=== PATIENT | female | born 1965 | race Caucasian/White ===

== ENCOUNTER 2018-05-11 14:17 | Emergency (ER) | payer SELFPAY ==
[2018-05-11 14:18] VITALS: BP 166/88; PULSE 72; RESP 16; TEMP 36.3; O2SAT 99; BMI 36.5
[2018-05-11] MEDS: proCHLORPERazine 10 MG/2 ML Vial IV (15:39)
[2018-05-11] MEDS: DiphenhydrAMINE 25 MG Capsule PO (15:39)
[2018-05-11 16:35] VITALS: BP 129/77; PULSE 71; RESP 14; O2SAT 93
--- NOTE | 2018-05-11 17:00 | ED.VISSUMM ---
- ER Visit Summary Date of Service: 05/11/18 Chief Complaint: Headache History of Present Illness: The patient is a 53 F with pain behind her left eye. This started around 12:30 PM while she was in a meeting. It feels like a hot poker. She has a history of headaches and tried some Maxalt with no relief. No other specific symptoms like fever, visual changes, nausea, vomiting, weakness, or numbness. Patient reports she does not feel right. 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 She has been getting MRIs, but the last one was about 12 months ago. Physical Examination: Afebrile and vital signs unremarkable except for a blood pressure of 166/88. Patient appears uncomfortable but not in acute distress. HEENT exam is unremarkable. It was noted that her right left pupil is not reactive. This is not new for her. Neck nontender with no meningeal signs. Heart regular. Lungs clear. Abdomen soft. Extremities nontender with no edema. Good range of motion and strength. Normal sensation and cerebellar testing. Test Results: CT head unremarkable. Postoperative changes but nothing acute. Emergency Department Course and Treatment: Patient treated with Compazine and Benadryl while awaiting results. I reevaluated the patient when I discussed her CT results. Her pain had went from an 8 out of 10 to a 2 out of 10. Patient declined any further medication. Would like to go home. I advised that she should still follow-up with her outpatient surveillance and will likely need a repeat MRI. This can be performed as an outpatient. Nothing to suggest stroke, bleed, CAT TENDER infection, or any other severe or emergent pathology. Patient will return for new or worsening symptoms. Treatment Plan: As above Disposition: Discharged Impression: 1. Acute cephalgia This note was generated with Tastebuds dictation software. It may contain incorrect words, spelling, and punctuation that were not noted in review of the chart prior to signing ED Disposition - Plan for ED Patient: Chief Complaint: Headache Referrals: Care Physician,No Primary [Primary Care Provider] -
--- NOTE | 2018-05-11 17:03 | ED.DCSUM_ITS ---
- ER Visit Summary Date of Service: 05/11/18 Chief Complaint: Headache History of Present Illness: The patient is a 53 F with pain behind her left eye. This started around 12:30 PM while she was in a meeting. It feels like a hot poker. She has a history of headaches and tried some Maxalt with no relief. No other specific symptoms like fever, visual changes, nausea, vomiting , weakness, or numbness. Patient reports she does not feel right. 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 She has been getting MRIs, but the last one was about 12 months ago. Physical Examination: Afebrile and vital signs unremarkable except for a blood pressure of 166/88. Patient appears uncomfortable but not in acute distress. HEENT exam is unremarkable. It was noted that her right left pupil is not reactive. This is not new for her. Neck nontender with no meningeal signs. Heart regular. Lungs clear. Abdomen soft. Extremities nontender with no edema. Good range of motion and strength. Normal sensation and cerebellar testing. Test Results: CT head unremarkable. Postoperative changes but nothing acute. Emergency Department Course and Treatment: Patient treated with Compazine and Benadryl while awaiting results. I reevaluated the patient when I discussed her CT results. Her pain had went from an 8 out of 10 to a 2 out of 10. Patient declined any further medication. Would like to go home. I advised that she should still follow-up with her outpatient surveillance and will likely need a repeat MRI. This can be performed as an outpatient. Nothing to suggest stroke, bleed, CORRECTIVE THERAPY AIDE TEACHER infection, or any other severe or emergent pathology. Patient will return for new or worsening symptoms. Treatment Plan: As above Disposition: Discharged Impression: 1. Acute cephalgia This note was generated with [employer] dictation software. It may contain incorrect words, spelling, and punctuation that were not noted in review of the chart prior to signing ED Disposition - Plan for ED Patient: Chief Complaint: Headache Referrals: Care Physician,No Primary [Primary Care Provider] -
--- NOTE | 2018-05-11 17:03 | ED.DEP ---
ED Disposition - Plan for ED Patient: Chief Complaint: Headache Instructions: ED Cephalgia Unspecified Referrals: Won Hernandez DO [STAFF PHYSICIAN] -
[2018-05-11 17:23] VITALS: BP 114/72; PULSE 81; RESP 16; O2SAT 98
== END 2018-05-11 17:25 | disposition home or self-care (01) ==
PROVIDERS: Emergency Provider Emergency Medicine
DX: R51 Headache (principal); K21.9 Gastro-esophageal reflux disease without esophagitis; E03.9 Hypothyroidism, unspecified; Z79.899 Other long term (current) drug therapy
CPT/HCPCS: 70450; 96374; 96375; 99282; A4216

== ENCOUNTER → 2018-11-08 12:33 | Outpatient (CLI) | payer OTHER, SELFPAY ==
--- NOTE | 2018-11-08 12:43 | BI_ITS ---
MAMMOGRAPHY - BILATERAL SCREENING REASON FOR EXAM: Female, 53 years old. Routine annual screening examination. PERTINENT HISTORY: Non-contributory. TECHNIQUE: Digital bilateral breast alissa (3D mammographic acquisition) in the CC and MLO projections. 2-D mediolateral oblique (MLO) and craniocaudad (CC) views of both breasts were obtained. CAD: Full Field Digital Mammography with Computer Added Detection was performed. COMPARISON: Comparison is made with prior outside examination dated November 08, 2013 FINDINGS: Breast Composition: The breasts are heterogeneously dense, which may obscure small masses. There are no dominant masses or suspicious calcifications. Stable small bilateral axillary lymph nodes. No other significant abnormalities are identified. There has been no significant change since the prior study. BI/SCREENING MAMM (CAD), BILAT IMPRESSION: Stable bilateral screening mammogram. Yearly follow-up mammogram recommended. (A) ASSESSMENT CATEGORY: BIRADS Category 2: Benign. A letter regarding these results will be sent to the patient by the facility within 30 days. Approximately 10% of breast cancers are not detected by mammography. A normal mammogram should not delay biopsy of a clinically suspicious abnormality. [id number] Electronically Signed: Richard Alfredo, at 14:38 EST , Service support ,
== END ==
DX: Z12.31 Encounter for screening mammogram for malignant neoplasm of breast (principal)
CPT/HCPCS: 77063; 77067

== ENCOUNTER → 2018-12-20 | Outpatient (CLI) | payer OTHER, SELFPAY ==
--- NOTE | 2018-12-20 06:43 | CT_ITS ---
HISTORY: RUQ TENDERSON EXAMINATION: CT Abdomen And Pelvis W/ Contrast TECHNIQUE: Helically acquired images were obtained of the abdomen and pelvis following IV contrast. A radiation dose optimization technique was used for this scan. IV Contrast dosage and agent: 100CC Isovue 300 Oral contrast: None. COMPARISON: None FINDINGS: LOWER CHEST: Lung bases are clear. No cardiomegaly or pericardial effusion observed. LIVER: Homogeneous. No focal mass. GALLBLADDER AND BILIARY TREE: No radiopaque gallstones. Possible gallbladder wall thickening. Gallbladder mildly distended. No intra- or extrahepatic biliary ductal dilation. KIDNEYS AND URETERS: 4 mm nonobstructing stone lower pole calyx right kidney. No left-sided stones. No hydronephrosis or ureteral stones. Incidental small renal cysts. ADRENAL GLANDS: Non-enlarged. SPLEEN: Normal size without focal cystic or solid mass. PANCREAS: No focal cystic or solid mass. BOWEL: Appendix not identified. No evidence of appendicitis. Mildly prominent stool in the cecum. No obstruction or inflammation of the bowel. LYMPH NODES: No enlarged mesenteric or retroperitoneal lymph nodes. PERITONEUM: No ascites or free air. No other fluid collection. VESSELS: Aorta is non-dilated. URINARY BLADDER: Unremarkable. REPRODUCTIVE ORGANS: Uterus and ovaries unremarkable. ABDOMINAL WALL: No discrete abdominal or pelvic wall hernia observed. BONES: No lytic or blastic abnormality observed. CT/Abdomen/Pelvis WITH Contrast IMPRESSION: Question mild gallbladder wall thickening. Given the history of right upper quadrant pain consider ultrasound to assess for occult gallstones. Mildly prominent stool within the cecum. This might cause right-sided discomfort. Small nonobstructing stone lower pole right kidney. Individualized dose optimization techniques were used for this CT. at 0301 Reported and signed by: Fortunato Verdin MD Electronically Signed: Fortunato Verdin, at 3:00 EDT Tel , Service support ,
== END | disposition home or self-care (01) ==
PROVIDERS: Referring Provider Nurse Practitioner Family; Visit Provider Nurse Practitioner Family
DX: R10.811 Right upper quadrant abdominal tenderness (principal)
CPT/HCPCS: 74177; Q9967

== ENCOUNTER → 2018-12-27 | Outpatient (CLI) | payer OTHER, SELFPAY ==
--- NOTE | 2018-12-27 09:28 | NM_ITS ---
CLINICAL: 53-year-old female with reported history of abdominal pain. RADIONUCLIDE HEPATOBILIARY SCINTIGRAPHY COMPARISON: CT of the abdomen-pelvis report 12/20/2018 FINDINGS: Following the intravenous administration of 5.5 mCi of 99m Tc Mebrofenin, hepatobiliary images reveal: 1. Relatively prompt and homogeneous radiopharmaceutical concentration is noted by a normal sized liver. No parenchymal defects are identified. 2. Gallbladder activity is identified at 15 minutes post radiopharmaceutical administration. 3. Small intestinal tract is not visualized during 60 minutes of pre-CCK sequential image acquisition. Small bowel is defined following cholecystokinin infusion. 4. Washout of the radiopharmaceutical by the hepatic parenchyma appears qualitatively normal. Cholecystokinin (0.02 ug/kg) was administered intravenously over a 30-minute period. The post CCK gallbladder ejection fraction calculated at 20 minutes following Cholecystokinin administration was noted to be 47.0 % (normal greater than 35%). During 30 minutes of post CCK imaging, there is no scintigraphic evidence of reflux of the radiotracer into the common hepatic duct or refilling of the gallbladder. NM/Hepatobilliary Img w/Pharm Int IMPRESSION: 1. NORMAL 99m Tc Mebrofenin hepatobiliary imaging examination with Cholecystokinin. A. A gallbladder ejection fraction calculated to be greater than 35% following the administration of Cholecystokinin makes the probability of functional hepatobiliary disease (gallbladder and/or sphincter of Oddi dyskinesia) and/or organic hepatobiliary disease (chronic acalculous cholecystitis and/or cystic duct syndrome) to be low. (Derrick Carlton et al, Journal of Nuclear Medicine 32:1695, 1990). Electronically Signed: Ean Jones DO at 23:21 EDT Tel , Service support ,
== END | disposition home or self-care (01) ==
LOC: NM 09:25
DX: R10.811 Right upper quadrant abdominal tenderness (principal)
CPT/HCPCS: 78227; A9537; J2805

== ENCOUNTER 2019-02-14 07:37 | Day surgery (SDC) | payer OTHER, SELFPAY ==
[2019-01-20 09:17] VITALS: BMI 36.5
--- NOTE | 2019-01-20 09:56 | HP_ITS ---
Intake Vital Signs 01/20/19 Body Mass Index (BMI) 36.5 01/20/19 Height 5 ft 4 in 01/20/19 Weight: 227 lb 01/20/19 Body Mass Index (BMI) 38.9 01/20/19 Blood Pressure 123/78 H 01/20/19 Blood Pressure Location Rt brachial 01/20/19 Blood Pressure Position Sitting 01/20/19 Respiratory Rate 18 01/20/19 Pulse Rate 69 Intake Visit Reasons: RUQ Pain Ct [facility] 12/20 Public Relations Sales Marketing Required: No Is patient in pain?: No Allergies latex Allergy (Verified 01/20/19 09:15) Angioedema Medications Rizatriptan Benzoate [Maxalt] 10 mg PO DAILY PRN PRN 05/11/18 [History Confirmed 01/20/19] atenolol 25 mg tablet 12.5 mg PO DAILY tab 01/20/19 [History Confirmed 01/20/19] levothyroxine 112 mcg tablet 56 mcg PO DAILY tab 01/20/19 [History Confirmed 01/20/19] meclizine 25 mg tablet 25 mg PO DAILY PRN 01/20/19 [History Confirmed 01/20/19] melatonin 5 mg capsule mg PO cap 01/20/19 [History Confirmed 01/20/19] naproxen sodium 220 mg capsule 220 mg PO BID PRN 01/20/19 [History Confirmed 01/20/19] omeprazole 40 mg capsule,delayed release 40 mg PO DAILY 01/20/19 [History Confirmed 01/20/19] pantoprazole 40 mg tablet,delayed release 40 mg PO DAILY #30 tab 01/20/19 [Rx Confirmed 01/20/19] PFSH Medical History Migraines (Acute) Palpitations (Acute) vertigo (Acute) HTN (hypertension) (Chronic) Surgical History S/P appendectomy (Acute) S/P craniotomy (Acute) S/P ovarian cystectomy (Acute) S/P tonsillectomy (Acute) S/P tubal ligation (Acute) Family History Mother CAD (coronary artery disease) Diabetes Heart disease Hypertension Kidney disease Father CVA (cerebral vascular accident) Grandmother Cancer Social History Smoking Status: Never smoker alcohol intake: current alcohol intake frequency: holidays/special occasions only HPI HPI HPI: JERONIMO COTA, is a 53 F who presents to the office today for HPI HPI Surgical H&P: Yes HPI: JERONIMO COTA, is a 53 F who presents to the office today for right shoulder/mid back pain and constant right back pain along with some discomfort in the right upper quadrant. Patient states that her right shoulder right back pain to me 8/10 and she gets it occasionally about 3 times the last month. However patient states that she gets this before she even eats or several hours after her last meal. Patient states that she has had some fatty greasy food that has not made a difference in. Patient is unsure if this discomfort starts in the right upper quadrant or not she states she occasionally has an achiness there but nothing prominent. Patient also complains of a constant right back pain that 4-5 out of 10 states she has had it for about a year states there is no change with food even fatty or greasy foods. Patient CT abdomen pelvis which the official read question whether some mild thickening of the gallbladder wall, HIDA scan was done which showed a normal ejection fraction of 47%. She states she has had reflux for about 40 years and in the 10th grade she started taking some medications but is been worse the last 2 years. Patient describes symptoms as burning upper esophagus, burping up acid. Currently she takes Prevacid or Prilosec [id number] 2 tabs once a day but states she still has daily symptoms. She does try to avoid sauce or spicy foods and gravy. Patient has not changed the head of her mattress. Patient has never had an EGD or colonoscopy. Denies any family history of colon cancer. She states she has bowel movements daily denies any blood. ROS General General: Yes weight change (gain) and fatigue; no colon cancer or breast cancer HEENT HEENT: No difficulty swallowing or swollen glands Skin Skin: No rash or changing moles Musc Musculoskeletal: Yes back problems (right back pain) and arthritis Cardio Cardiovascular: No chest pain Psych Psychiatric: No depression or anxiety Resp Respiratory: No shortness of breath, Yes sleep apnea, No cough Gastro Gastrointestinal: No abdominal pain, Yes nausea or vomiting (occ N), Yes diarrhea (occasional), Yes constipation, No blood in stool, Yes acid reflux, Yes hemorrhoids, No ulcers, Yes gallbladder problem, No black,tarry stools Exam Const General: cooperative, comfortable, no acute distress HENME Head: normal to inspection, atraumatic Eyes Sclera: sclerae normal Neck Neck: supple Resp Effort & Inspection: normal respiratory effort Cardio Rate: regular rate GI Inspection: non-distended, obesity, scar (Lower midline incision) Palpation: soft, no guarding, no hernias, nontender Assessment & Plan Problems 1. Right-sided back pain M54.9 2. RUQ pain R10.11 3. Gastroesophageal reflux disease K21.9 4. Encounter for screening for malignant neoplasm of colon Z12.11 Plan Patient mainly complains of occasional right shoulder and mid back pain but she also states she has a constant right back pain and some occasional discomfort in the right upper quadrant patient is unable to tell me if it really starts in the right upper quadrant are not and also this does not seem to make a difference with food. Patient's CAT scan appeared to have an normal-appearing gallbladder official read said there could be possible mild thickening, HIDA scan was within normal limits at 47%. Ensure that patient's symptoms are due to gallbladder but will check an ultrasound of the gallbladder as this has not been done yet. Discussed with patient that she does need an EGD as she states she has had reflux for about 4 years last 2 years gotten worse she is on 40 mg of either Prevacid or Prilosec whichever is on sale at the time and states she still has symptoms daily with the medication. Did encourage patient to continue to avoid spicy foods, recommended small meals, recommended not eating before bed and also trying to elevate the head of her mattress. I have discussed the above with the patient. I have offered the patient EGD and colonoscopy for evaluation. I have explained the risks/benefits of the procedure and described the procedure. I have discussed the risks with the patient, including but not limited to: infection, bleeding, perforation of the GI tract requiring emergency surgery, inability to complete the procedure, injury to any internal organs, complications of anesthesia, etc. - the patient understands and agrees to proceed. I have answered all the patient's questions to the patient's satisfaction and the patient has no further questions. The patient has been given instructions for the colon cleansing preparation. 1 day of clears, MiraLAX Dulcolax split prep Soraida Toscano M.D. Pager: [phone] [facility] [address] [place] [address], [facility], [address] [place] [id number] Office: [phone] Orders Orders: Colonoscopy Today EGD Today R10.11 Gallbladder Today K21.9, R10.11 Medications New: pantoprazole 40 mg PO DAILY 30 tabs 2RF Plan Detail Follow Up We will schedule EGD and colonoscopy and get ultrasound of her gallbladder Coding Level of Care Code Off vis,new,level 4 Diagnoses Right-sided back pain M54.9 RUQ pain R10.11 Gastroesophageal reflux disease K21.9 Encounter for screening for malignant neoplasm of colon Z12.11 01/20/19 0957 <Electronically signed by Soraida Toscano MD> Date Soraida Toscano MD I have examined the patient the following changes are noted: Patient has been taking the Protonix 40 mg p.o. daily. She states she has some kind of epigastric not really pain but fullness feeling after eating. Patient denies the right upper quadrant pain or the right back pain today. Patient states that the prep went well.
[2019-02-14 08:01] VITALS: BP 126/68; PULSE 74; RESP 14; TEMP 36.5; O2SAT 98; BMI 38.9
--- NOTE | 2019-02-14 08:50 | EGD_PTH ---
PATIENT: JERONIMO COTA LOC: EN U#:[id number] AGE/SX: 54/F ROOM: RE02/14/[address]: Dr. Soraida Toscano MD : 1965 BED: DIS: 02/14/2019 SPEC #: [id number] RECD: 02/14/19 11:53 STATUS: CARY PERCY #: [id number] ALEXANDRA: 02/14/19 08:[address]: Soraida Toscano DEPT: SURGICAL PATHOLOGY RECD BY: Jose C Rojas ENTERED: 02/14/19 12:27 SP TYPE: EGD BIOPSY OTHR DR: Vivian [facility] Tissues: A - Gastric mucous membrane B - Gastric mucous membrane Procedures: Special Stain Group II Surgery Specimen Level IV Alcian Blue/PAS (control) HEADER OPERATION: Colonoscopy, EGD ([facility]) PRE-OP DIAGNOSIS: RUQ pain, tight sided back pain, GERD, screening TISSUE SUBMITTED: A. Antrum biopsy for H. Pylori and path, B. GE junction biopsy MICROSCOPIC DIAGNOSIS A. Gastric antrum, biopsy: Mild chronic gastritis. See comment. B. Gastroesophageal junction, biopsy: Fragment of gastric mucosa with mild chronic inflammation. No evidence of intestinal metaplasia. See comment. AM:amalia 02/15/19 COMMENT A. The results of immunohistochemistry for Helicobacter pylori will be reported separately ([id number]). B. Alcian blue/PAS stain with matched control supports the above diagnosis. Squamous epithelium is not represented in the biopsy. Clinical correlation is suggested. MICROSCOPIC DESCRIPTION Slides are reviewed. GROSS DESCRIPTION A - Received in fixative is one container labeled with the patient's name and designated antrum biopsy. The specimen consists of one irregular fragment of light owens soft tissue that measures 0.3 x 0.2 x 0.1 cm. The specimen is totally submitted in one cassette. B - Received in fixative is one container labeled with the patient's name and designated GE junction. The specimen consists of one irregular fragment of light owens soft tissue that measures 0.2 x 0.2 x 0.1 cm. The specimen is totally submitted in one cassette. / AM:amalia 02/14/19 TC:5 CPT: 26620 x2, 63213
--- NOTE | 2019-02-14 08:50 | IMM_PTH ---
PATIENT: JERONIMO COTA LOC: EN U#:[id number] AGE/SX: 54/F ROOM: RE02/14/[address]: Dr. Soraida Toscano MD : 1965 BED: DIS: 02/14/2019 SPEC #: [id number] RECD: 02/14/19 13:56 STATUS: CARY PERCY #: [id number] ALEXANDRA: 02/14/19 08:[address]: Soraida Toscano DEPT: IMMUNOHISTOCHEMISTRY RECD BY: Luci Rinaldi ENTERED: 02/14/19 13:57 SP TYPE: IMMUNO OTHR DR: [facility] Tissues: A - Stomach, NOS Procedures: H Pylori (initial) PHYSICIAN & INSTITUTION [place] [address] SPECIMEN INFORMATION: Tissue Source: A - Antrum biopsy Clinical Info: RUQ pain, right-sided back pain, GERD, screening Specimen Number: [id number] CPT code: 80076 METHODOLOGY: Deparaffinized sections of prefer/formalin-fixed tissue or PAP/DQ stained slides are incubated with monoclonal/polyclonal antibodies/oligonucleotide probes. Localization is made via biotin free immunoperoxidase method. Appropriate controls are performed and reacted as expected. Results on target cell population are indicated in the following table: RESULTS: ANTIBODY / CLONE RESULT Block A H Pylori (polyclonal) negative These tests were developed and their performance characteristics determined by [facility]. They may not have been cleared or approved by the U.S. Food and Drug Administration. The FDA has determined that such clearance or approval is not necessary. INTERPRETATION: A. Antrum biopsy: Negative for Helicobacter pylori organisms. AM:amalia 02/15/19
[2019-02-14 09:15] VITALS: BP 126/68; BP 94/42; PULSE 74; RESP 14; TEMP 36; O2SAT 96
--- NOTE | 2019-02-14 09:18 | OP.ENDO_ITS ---
02/14/2019 Vivian Brar [facility] Re : Upper GI endoscopy procedure for Sydney Melton Dear [facility] This procedure was performed on Thursday, February 14, 2019. My impressions and recommendations are as follows: Impressions : - Z-line irregular, 39 cm from the incisors. Biopsied. - Gastritis. Biopsied. - Normal examined duodenum. Recommendations : - Await pathology results. - Discharge patient to home. - Continue present medications. My findings are described in the full procedure note, which is enclosed. If I can be of further assistance, please feel free to contact me at Doctor phone number(s): , Work: . Sincerely, MD Soraida Sotelo MD 02/14/2019 9:18:20 AM This report has been signed electronically.
[2019-02-14 09:20] VITALS: BP 125/72; BP 126/68; PULSE 72; RESP 18; O2SAT 96
--- NOTE | 2019-02-14 09:22 | OP.ENDO_ITS ---
02/14/2019 Vivian Brar [facility] Re : Colonoscopy procedure for Sydney Melton Dear [facility] This procedure was performed on Thursday, February 14, 2019. My impressions and recommendations are as follows: Impressions : - Hemorrhoids found on perianal exam. - Diverticulosis in the sigmoid colon. - The examination was otherwise normal on direct and retroflexion views. - No specimens collected. Recommendations : - Discharge patient to home. - High fiber diet. - Continue present medications. - Repeat colonoscopy in 10 years for screening purposes. My findings are described in the full procedure note, which is enclosed. If I can be of further assistance, please feel free to contact me at Doctor phone number(s): , Work: . Sincerely, MD Soraida Sotelo MD 02/14/2019 9:21:39 AM This report has been signed electronically.
[2019-02-14 09:25] VITALS: BP 120/69; BP 126/68; PULSE 70; RESP 18; O2SAT 96
[2019-02-14 09:30] VITALS: BP 109/97; BP 126/68; PULSE 72; RESP 18; TEMP 35.9; O2SAT 97
[2019-02-14 09:57] VITALS: BP 126/68
== END 2019-02-14 10:22 | disposition home or self-care (01) ==
LOC: EN 07:38 → AC 07:39
PROVIDERS: Referring Provider Surgery; Visit Provider Surgery
PROC: 0DJD8ZZ Inspection of Lower Intestinal Tract, Via Natural or Artificial Opening Endoscopic (ICD-10-PCS; CPT 45378; principal; 2019-02-14 08:45)
DX: Z12.11 Encounter for screening for malignant neoplasm of colon (principal); K29.50 Unspecified chronic gastritis without bleeding; K64.9 Unspecified hemorrhoids; K57.30 Diverticulosis of large intestine without perforation or abscess without bleeding; K21.9 Gastro-esophageal reflux disease without esophagitis; I10 Essential (primary) hypertension; I49.9 Cardiac arrhythmia, unspecified; G47.30 Sleep apnea, unspecified; Z79.899 Other long term (current) drug therapy
CPT/HCPCS: 43239; 45378; 88305; 88313; 88342; J7120

== ENCOUNTER → 2019-02-28 | Outpatient (CLI) | payer OTHER, SELFPAY ==
[2019-02-14 08:01] VITALS: BMI 38.9
--- NOTE | 2019-02-28 08:04 | US_ITS ---
STUDY: ABDOMINAL ULTRASOUND - RIGHT UPPER QUADRANT REASON FOR VISIT: Female, 54 years old. Right upper quadrant pain for one year. TECHNIQUE: Ultrasound evaluation of the right upper quadrant was performed with real-time and static soto-scale imaging. TECHNICAL QUALITY: Adequate. COMPARISON: CT the abdomen and pelvis, December 20, 2018. Hepatobiliary scan, December 27, 2018. FINDINGS: Liver: The liver measures 18.7 cm. There is normal echogenicity of the liver. The bile ducts are within normal limits. There is hepatic color flow. The direction of portal flow is hepatopetal. There is no demonstrated mass lesion. Gallbladder: Normal distended gallbladder. The gallbladder wall measures 2.3 mm. There is a negative sonographic Arellano's sign. There is no pericholecystic fluid. There is biliary sludge dependent within the gallbladder. Common Bile Duct (C.B.D.): The common bile duct measures 3.7 mm. Pancreas: Normal size of the head, body and tail of the pancreas. There is normal echogenicity of the pancreas. There is no demonstrated pancreatic mass or cyst. Right Kidney: Normal size of the right kidney. The right kidney measures 11.1 cm. Normal renal cortex. The right cortex measures 1.3 cm. There is no demonstrated renal mass or cyst. There is a 4 mm nonobstructing calculus in the lower pole. There is no right hydronephrosis. US/Abdomen Limited IMPRESSION: 1. Question minimal gallbladder sludge without secondary evidence of acute cholecystitis. 2. Mild hepatomegaly without mass. This was not previously noted. 3. Nonobstructing right renal calculus. This was present on the prior CT. Electronically Signed: Jarret Wade DO at 17:19 EDT Tel [phone], Service support ,
== END | disposition home or self-care (01) ==
LOC: US 08:04
PROVIDERS: Referring Provider Surgery; Visit Provider Surgery
DX: R10.11 Right upper quadrant pain (principal); K21.9 Gastro-esophageal reflux disease without esophagitis
CPT/HCPCS: 76705

== ENCOUNTER → 2020-10-10 09:07 | Outpatient (CLI) | payer OTHER, SELFPAY ==
--- NOTE | 2020-10-10 09:13 | RAD_ITS ---
STUDY: X-RAY - ABDOMEN/PELVIS REASON FOR EXAM: Female, 55 years old. RIGHT SIDE KIDNEY STONE/ PAIN TECHNIQUE: Single AP view of the abdomen / pelvis. COMPARISON: None. FINDINGS: Normal visualized lung bases. There is an unremarkable bowel gas pattern. There is no demonstrated free abdominal air. 3 mm calculus in the lower pole of the right kidney. There are calcified phleboliths in the pelvis. There is a 1.3 cm rounded calcification overlying the right iliac bone. This most likely erosions the calcified mesenteric lymph node. Narrowing and sclerosis of the symphysis pubis. RAD/Abdomen Single View IMPRESSION: 3 mm calculus is seen in the lower pole of the right kidney. Electronically Signed: Richard Alfredo MD at 12:56 EST , Service support ,
== END ==
LOC: MTRAD 09:11
PROVIDERS: Referring Provider Urology; Visit Provider Urology
DX: N20.0 Calculus of kidney (principal)
CPT/HCPCS: 74018

== ENCOUNTER → 2020-10-24 09:19 | Outpatient (CLI) | payer OTHER, SELFPAY ==
[2020-10-24 10:17] LABS: Absolute Lymphocyte Count 1.66 X10^3/uL (0.83-4.51); Absolute Neutrophil Count 3.6 X10^3/uL (2.0-7.7); Basophil# 0.08 X10^3/uL; Basophil% 1.3 % (0-1); Eosinophil# 0.18 X10^3/uL; Hematocrit 41.1 % (37-47); Hemoglobin 13.2 g/dL (12.0-15.0); Lymphocyte # 1.66 X10^3/ul (4.0); Lymphocyte % 27.7 % (19-41); Mean Corp Hgb Conc 32.1 g/dL (32-36); Mean Corpuscular Volume 93.4 fL (81-99); Mean Platelet Vol. 9.8 fl (6.2-12.0); Monocyte# 0.49 X10^3/uL; Monocyte% 8.2 % (0-10); NRBC Flagged by Analyzer 0 % (0-5); Neutrophil # 3.56 X10^3/uL (2.7-7.7); Neutrophil % 59.5 % (47-70); Platelet Count 347 K/mm3 (150-450); RBC Distribution Width CV 12.7 % (11.6-14.6); RBC Distribution Width SD 43.9 fl (35.1-43.9)
[2020-10-24 10:19] LABS: Color, Urine Yellow (Yellow); Glucose, Dipstick Normal (Normal); Ketone-Dipstick Negative (Negative); Leukocyte Esterase-Dipstick 500 /ul (Negative); Nitrite-Dipstick Negative (Negative); Occult Blood-Urine 250 /ul (Negative); Protein-Dipstick 30 mg/dl (Negative); Specific Gravity, Urine 1.015 (1.002-1.030); Urine Bilirubin Dipstick Negative (Negative); Urine Clarity Sl. Cloudy (Clear); Urine Urobilinogen Normal (Normal)
[2020-10-24 10:23] LABS: Prothrombin Time (Protime)PT. 12.7 SECONDS (11.7-14.9)
[2020-10-24 10:24] LABS: Partial Thromboplast Time 29.1 Seconds (24.1-36.2)
[2020-10-24 10:25] LABS: EXAGEN MAILED SPECIMEN
[2020-10-24 10:36] LABS: Protein, Urine (Random) 25.5 mg/dL (<11.9); Protein:Creat Ratio 248 mg/g CRE (0-200)
[2020-10-24 11:21] LABS: ALB/GLOB Ratio 1.1 RATIO (0.9-2.4); AST(SGOT) 24 U/L (15-37); Alanine Aminotransfer ALT/SGPT 25 U/L (13-56); Albumin, Serum 3.6 g/dL (3.2-5.0); Alkaline Phosphatase 83 U/L (45-117); Anion Gap 6 (5-15); BUN 15 mg/dL (7-18); BUN/Creat Ratio 17.6 RATIO (10-20); Chloride 109 mmol/L (98-107); Creatinine, Serum 0.85 mg/dL (0.55-1.02); EST Glomerular Filtration Rate 73 mL/min (>60); Est Glom Filt Rate - Afr Amer 89 mL/min (>60); Globulin 3.2 g/dL (2.2-4.2); Glucose 94 mg/dL (74-106); Potassium 3.7 mmol/L (3.5-5.1); Protein, Total 6.8 g/dL (6.4-8.2); Sodium Level 142 mmol/L (136-145)
[2020-10-24 11:55] LABS: Hepatitis B Surface Antibody Non-Reactive; Hepatitis B Surface Antigen Non-Reactive (Nonreactive); Hepatitis C Antibody Non-Reactive (Nonreactive)
[2020-10-26 12:28] LABS: Thrombin Time 17.2 sec (0.0-23.0)
[2020-10-26 20:07] LABS: Dilute Prothrombin Time (dPT) 34.8 sec (0.0-55.0); Dilute Russell Viper Venom 34.4 sec (0.0-47.0); Hexagonal Phase Phospholipid 1 sec (0-11); PTT-LA 36.3 sec (0.0-51.9); Thrombin Time 18.1 sec (0.0-23.0); dPT Confirm Ratio 0.87 Ratio (0.00-1.40)
[2020-10-26 21:05] LABS: Interpretation Comment: (.)
== END ==
LOC: MTLAB 09:22
PROVIDERS: Referring Provider Internal Medicine Rheumatology; Visit Provider Internal Medicine Rheumatology
DX: M06.4 Inflammatory polyarthropathy (principal); R76.8 Other specified abnormal immunological findings in serum; M79.7 Fibromyalgia; E03.9 Hypothyroidism, unspecified; K21.9 Gastro-esophageal reflux disease without esophagitis; G43.909 Migraine, unspecified, not intractable, without status migrainosus
CPT/HCPCS: 36415; 80053; 81002; 82570; 84156; 85025; 85598; 85610; 85670; 85730; 86706; 86803; 87340

== ENCOUNTER 2020-11-06 06:44 | Day surgery (SDC) | payer OTHER, SELFPAY ==
[2020-11-06] VITALS (7 sets, daily range): BP systolic 120–148; BP diastolic 77–89; PULSE 65–84; RESP 16–18; TEMP 36.2–36.8; O2SAT 93–99; BMI 40.8
[2020-11-06] MEDS: Lactated Ringers 1,000 ML 100 ML IV (07:25)
--- NOTE | 2020-11-06 08:12 | PCM.OPRPT ---
Problem List (1) Renal calculus, right Status: Acute Report of Operation Date of Procedure: 11/06/20 Pre-Operative Diagnosis: right renal calculus Post-Operative Diagnosis: same Surgery/Procedure Performed:: Right extracorporal shockwave lithotripsy Type of Anesthesia:: General Specimen's removed: None Description of Procedure: Patient is a 55-year-old female who presented to the office and was identified as having a right renal calculus. After discussing the risk benefits and alternatives, she agreed to proceed with definitive management with extracorporal shockwave lithotripsy. Informed consent was obtained and included a discussion of the risks of COVID-19 as well. She was taken to the operating room placed on the operating room table. Anesthesia monitored the head, neck, airway, IV access and vital signs throughout the case. Once anesthesia appropriate ministered the patient was preemptively aligned with the lithotripter. Fluoroscopy was used to visualize the stone. It was 5mm in size and identified in the right lower pole. 2000 shocks were applied and the stone was unable to be visualized. There were no complications during the procedure. The patient was awakened and taken the recovery room in good condition. Grafts/Implants Used: None - Complications None - Admit VTE Documentation VTE Present on Admission: Yes VTE Mechan Device Prophylaxis: SCD's VTE Pharm Prophylaxis ordered?: No Reason prophylaxis not ordered:: Treatment Not Indicated
--- NOTE | 2020-11-06 08:16 | DCINST_ITS ---
Discharge Diet: No Restrictions Discharge Activity: May not drive while taking narcotic pain medications., May Shower May resume sexual activity in: No Restrictions Call your doctor if you observe: Fever of 101 or Higher, Inability to urinate, Inability to have a bowel movement, Calf discomfort, Uncontrolled pain Allergies/Adverse Reactions: Allergies latex Allergy (Verified 10/30/20 10:35) Angioedema Medications to take at Discharge Rizatriptan Benzoate [Maxalt] 10 mg PO DAILY PRN PRN 05/11/18 levothyroxine 112 mcg tablet 56 mcg PO DAILY tab 01/20/19 meclizine 25 mg tablet 25 mg PO DAILY PRN 01/20/19 naproxen sodium 220 mg capsule 220 mg PO BID PRN 01/20/19 omeprazole 40 mg capsule,delayed release 40 mg PO DAILY 01/20/19 Aloe Vera 50 mg PO DAILY 10/30/20 Fluticasone 0.05% [Flonase Nasal [place]] 1 spray NASAL DAILY PRN 10/30/20 Multivitamin with Minerals [Multiple Vitamin] 1 ea PO DAILY 10/30/20 Prednisone 10 mg PO PRN PRN 10/30/20 Cephalexin [Keflex] 500 mg PO Q12 3 Days #6 cap 11/06/20 Oxycodone HCl/Acetaminophen [Percocet 5/325] 2 tablet PO Q8H PRN PRN 7 Days #20 tablet 11/06/20 The following prescriptions were given: Cephalexin [Keflex] 500 mg PO Q12 3 Days #6 cap Transmission Status: Pending to [facility] Oxycodone HCl/Acetaminophen [Percocet 5/325] 2 tablet PO Q8H PRN PRN 7 Days #20 tablet PRN Reason: Pain Transmission Status: Sent to [facility] Primary Care Physician: Moshe Do MD [Primary Care Provider] - Test Results: Test results from this visit will be discussed in further detail at your follow- up appointment, if applicable. Please Follow Up With: Leidy Herring MD When: call for appt to be seen in 2-3 weeks with TERRIE Proposed Discharge Date: 11/06/20
[2020-11-06] MEDS: Cefazolin 2 GM in 0.9% Normal Saline 100 ML IV (08:30)
== END 2020-11-06 10:43 | disposition home or self-care (01) ==
LOC: SDC 06:45 → AC 06:45
PROVIDERS: PCP Family Medicine; Referring Provider Urology; Visit Provider Urology
PROC: (CPT 50590; principal; 2020-11-06 08:15)
DX: N20.0 Calculus of kidney (principal); K21.9 Gastro-esophageal reflux disease without esophagitis; E03.9 Hypothyroidism, unspecified; G47.30 Sleep apnea, unspecified; Z20.822 Contact with and (suspected) exposure to COVID-19; Z79.899 Other long term (current) drug therapy
CPT/HCPCS: 50590; 87426; C9803; J7120; J2405

== ENCOUNTER → 2020-11-19 09:03 | Outpatient (CLI) | payer OTHER, SELFPAY ==
[2020-11-06 07:12] VITALS: BMI 40.8
--- NOTE | 2020-11-19 09:06 | RAD_ITS ---
STUDY: X-RAY - ABDOMEN/PELVIS REASON FOR EXAM: Female, 55 years old. KIDNEY STONE TECHNIQUE: Two AP supine views of the abdomen and pelvis. COMPARISON: None. FINDINGS: Normal visualized lung bases. There is a moderate amount of colonic fecal material. There is no demonstrated free abdominal air. The visualized liver, spleen and kidneys are grossly normal in size and morphology. No demonstrated calcification overlying either renal shadow. Normal soft tissue structures. Normal visualized osseous structures. Osteitis pubis noted within the pelvis RAD/Abdomen Single View IMPRESSION: No acute findings Retained stool Electronically Signed: Kenny Hampton MD at 19:03 EST , Service support ,
== END ==
PROVIDERS: PCP Family Medicine; Referring Provider Urology; Visit Provider Urology
DX: N20.0 Calculus of kidney (principal)
CPT/HCPCS: 74018

== ENCOUNTER → 2020-12-26 10:33 | Outpatient (CLI) | payer OTHER, SELFPAY ==
[2020-11-06 07:12] VITALS: BMI 40.8
[2020-12-26 12:45] LABS: Absolute Lymphocyte Count 1.93 X10^3/uL (0.83-4.51); Absolute Neutrophil Count 3.3 X10^3/uL (2.0-7.7); Basophil# 0.09 X10^3/uL; Basophil% 1.5 % (0-1); Eosinophil# 0.22 X10^3/uL; Eosinophils% 3.6 % (0-5); Hematocrit 42.1 % (37-47); Hemoglobin 13.6 g/dL (12.0-15.0); Lymphocyte # 1.93 X10^3/ul (0.83-4.51); Lymphocyte % 31.6 % (19-41); Mean Corp Hgb Conc 32.3 g/dL (32-36); Mean Corpuscular Hgb 30.7 pg (27.0-32.0); Mean Platelet Vol. 10.4 fl (6.2-12.0); Monocyte# 0.53 X10^3/uL; Monocyte% 8.7 % (0-10); NRBC Flagged by Analyzer 0 % (0-5); Neutrophil # 3.33 X10^3/uL (2.7-7.7); Neutrophil % 54.4 % (47-70); Platelet Count 365 K/mm3 (150-450); RBC Distribution Width SD 44.7 fl (35.1-43.9); Red Blood Count 4.43 M/mm3 (4.2-5.4); White Blood Count 6.1 K/mm3 (4.4-11.0)
[2020-12-26 13:02] LABS: ALB/GLOB Ratio 1.1 RATIO (0.9-2.4); AST(SGOT) 20 U/L (15-37); Alanine Aminotransfer ALT/SGPT 28 U/L (13-56); Albumin, Serum 3.7 g/dL (3.2-5.0); Alkaline Phosphatase 89 U/L (45-117); Anion Gap 4 (5-15); BUN 18 mg/dL (7-18); BUN/Creat Ratio 19.4 RATIO (10-20); Calcium,Total 8.9 mg/dL (8.5-10.1); Chloride 111 mmol/L (98-107); Creatinine, Serum 0.93 mg/dL (0.55-1.02); EST Glomerular Filtration Rate 67 mL/min (>60); Est Glom Filt Rate - Afr Amer 80 mL/min (>60); Globulin 3.4 g/dL (2.2-4.2); Glucose 93 mg/dL (74-106); Potassium 3.8 mmol/L (3.5-5.1); Protein, Total 7.1 g/dL (6.4-8.2); Sodium Level 142 mmol/L (136-145)
== END ==
PROVIDERS: PCP Family Medicine; Referring Provider Internal Medicine Rheumatology; Visit Provider Internal Medicine Rheumatology
DX: M06.4 Inflammatory polyarthropathy (principal); R76.8 Other specified abnormal immunological findings in serum; M79.7 Fibromyalgia; E03.9 Hypothyroidism, unspecified; K21.9 Gastro-esophageal reflux disease without esophagitis; G43.909 Migraine, unspecified, not intractable, without status migrainosus; N32.81 Overactive bladder; J30.9 Allergic rhinitis, unspecified; Z79.899 Other long term (current) drug therapy
CPT/HCPCS: 36415; 80053; 85025

== ENCOUNTER → 2021-02-26 11:30 | Outpatient (CLI) | payer OTHER, SELFPAY ==
[2020-11-06 07:12] VITALS: BMI 40.8
[2021-02-26 15:03] LABS: Absolute Lymphocyte Count 1.58 X10^3/uL (0.83-4.51); Absolute Neutrophil Count 3.4 X10^3/uL (2.0-7.7); Basophil# 0.09 X10^3/uL; Basophil% 1.6 % (0-1); Eosinophil# 0.22 X10^3/uL; Eosinophils% 3.9 % (0-5); Hematocrit 41.9 % (37-47); Hemoglobin 13.7 g/dL (12.0-15.0); Lymphocyte # 1.58 X10^3/ul (0.83-4.51); Lymphocyte % 27.7 % (19-41); Mean Corp Hgb Conc 32.7 g/dL (32-36); Mean Corpuscular Hgb 30.6 pg (27.0-32.0); Mean Corpuscular Volume 93.7 fL (81-99); Mean Platelet Vol. 10.3 fl (6.2-12.0); Monocyte# 0.35 X10^3/uL; Monocyte% 6.1 % (0-10); NRBC Flagged by Analyzer 0 % (0-5); Neutrophil # 3.44 X10^3/uL (2.7-7.7); Neutrophil % 60.3 % (47-70); Platelet Count 376 K/mm3 (150-450); RBC Distribution Width CV 13.3 % (11.6-14.6); RBC Distribution Width SD 45.6 fl (35.1-43.9); Red Blood Count 4.47 M/mm3 (4.2-5.4); White Blood Count 5.7 K/mm3 (4.4-11.0)
[2021-02-26 15:37] LABS: ALB/GLOB Ratio 1.1 RATIO (0.9-2.4); AST(SGOT) 25 U/L (15-37); Alanine Aminotransfer ALT/SGPT 29 U/L (13-56); Albumin, Serum 3.6 g/dL (3.2-5.0); Alkaline Phosphatase 91 U/L (45-117); Anion Gap 7 (5-15); BUN 21 mg/dL (7-18); BUN/Creat Ratio 19.4 RATIO (10-20); Calcium,Total 8.9 mg/dL (8.5-10.1); Chloride 108 mmol/L (98-107); Creatinine, Serum 1.08 mg/dL (0.55-1.02); EST Glomerular Filtration Rate 56 mL/min (>60); Est Glom Filt Rate - Afr Amer 68 mL/min (>60); Globulin 3.2 g/dL (2.2-4.2); Glucose 115 mg/dL (74-106); Protein, Total 6.8 g/dL (6.4-8.2); Sodium Level 142 mmol/L (136-145)
== END ==
PROVIDERS: PCP Family Medicine; Referring Provider Internal Medicine Rheumatology; Visit Provider Internal Medicine Rheumatology
DX: M06.4 Inflammatory polyarthropathy (principal); R76.8 Other specified abnormal immunological findings in serum; M79.7 Fibromyalgia; E03.9 Hypothyroidism, unspecified; K21.9 Gastro-esophageal reflux disease without esophagitis; G43.909 Migraine, unspecified, not intractable, without status migrainosus; N32.81 Overactive bladder; J30.9 Allergic rhinitis, unspecified; Z79.899 Other long term (current) drug therapy
CPT/HCPCS: 36415; 80053; 85025

== ENCOUNTER → 2021-04-22 10:09 | Outpatient (CLI) | payer OTHER, SELFPAY ==
[2020-11-06 07:12] VITALS: BMI 40.8
[2021-04-22 12:11] LABS: Absolute Lymphocyte Count 1.57 X10^3/uL (0.83-4.51); Absolute Neutrophil Count 3.4 X10^3/uL (2.0-7.7); Basophil# 0.07 X10^3/uL; Basophil% 1.3 % (0-1); Eosinophil# 0.11 X10^3/uL; Hematocrit 40.6 % (37-47); Hemoglobin 13.3 g/dL (12.0-15.0); Lymphocyte # 1.57 X10^3/ul (0.83-4.51); Lymphocyte % 28.4 % (19-41); Mean Corp Hgb Conc 32.8 g/dL (32-36); Mean Corpuscular Hgb 30.9 pg (27.0-32.0); Mean Corpuscular Volume 94.2 fL (81-99); Monocyte# 0.36 X10^3/uL; Monocyte% 6.5 % (0-10); NRBC Flagged by Analyzer 0 % (0-5); Neutrophil # 3.39 X10^3/uL (2.7-7.7); Neutrophil % 61.4 % (47-70); Platelet Count 355 K/mm3 (150-450); RBC Distribution Width CV 12.9 % (11.6-14.6); RBC Distribution Width SD 44.7 fl (35.1-43.9); Red Blood Count 4.31 M/mm3 (4.2-5.4); White Blood Count 5.5 K/mm3 (4.4-11.0)
[2021-04-22 12:32] LABS: ALB/GLOB Ratio 1.1 RATIO (0.9-2.4); AST(SGOT) 25 U/L (15-37); Alanine Aminotransfer ALT/SGPT 34 U/L (13-56); Albumin, Serum 3.6 g/dL (3.2-5.0); Alkaline Phosphatase 88 U/L (45-117); Anion Gap 7 (5-15); BUN 15 mg/dL (7-18); BUN/Creat Ratio 17.1 RATIO (10-20); Calcium,Total 8.7 mg/dL (8.5-10.1); Chloride 108 mmol/L (98-107); Creatinine, Serum 0.88 mg/dL (0.55-1.02); EST Glomerular Filtration Rate 71 mL/min (>60); Est Glom Filt Rate - Afr Amer 86 mL/min (>60); Globulin 3.3 g/dL (2.2-4.2); Glucose 109 mg/dL (74-106); Potassium 3.7 mmol/L (3.5-5.1); Protein, Total 6.9 g/dL (6.4-8.2); Sodium Level 140 mmol/L (136-145)
== END ==
PROVIDERS: PCP Family Medicine; Referring Provider Internal Medicine Rheumatology; Visit Provider Internal Medicine Rheumatology
DX: M06.4 Inflammatory polyarthropathy (principal); R76.8 Other specified abnormal immunological findings in serum; M79.7 Fibromyalgia; E03.9 Hypothyroidism, unspecified; K21.9 Gastro-esophageal reflux disease without esophagitis; G43.909 Migraine, unspecified, not intractable, without status migrainosus; N32.81 Overactive bladder; J30.9 Allergic rhinitis, unspecified; Z79.899 Other long term (current) drug therapy
CPT/HCPCS: 36415; 80053; 85025

== ENCOUNTER 2021-10-03 09:03 | Day surgery (SDC) | payer BC, SELFPAY ==
[2021-10-03] VITALS (8 sets, daily range): BP systolic 132–146; BP diastolic 74–89; PULSE 65–77; RESP 14–16; TEMP 36.5–36.9; O2SAT 91–99; BMI 35.9
[2021-10-03 09:56] LABS: Hematocrit 42.1 % (37-47); Hemoglobin 13.8 g/dL (12.0-15.0); Mean Corp Hgb Conc 32.8 g/dL (32-36); Mean Corpuscular Hgb 29.4 pg (27.0-32.0); Mean Corpuscular Volume 89.8 fL (81-99); Mean Platelet Vol. 9.9 fl (6.2-12.0); Platelet Count 314 K/mm3 (150-450); RBC Distribution Width CV 13.1 % (11.6-14.6); RBC Distribution Width SD 42.5 fl (35.1-43.9); Red Blood Count 4.69 M/mm3 (4.2-5.4); White Blood Count 6.4 K/mm3 (4.4-11.0)
[2021-10-03] MEDS: Lactated Ringers 1,000 ML 15 ML IV (09:56)
--- NOTE | 2021-10-03 10:45 | EMB_PTH ---
PATIENT: JERONIMO COTA LOC: [facility] U#:[id number] AGE/SX: 56/F ROOM: RE10/03/[address]: Dr. Jenny Minaya DO : 1965 BED: DIS: 10/03/2021 SPEC #: [id number] RECD: 10/03/21 15:29 STATUS: CARY PERCY #: [id number] ALEXANDRA: 10/03/21 10:[address]: Jenny Minaya DEPT: SURGICAL PATHOLOGY RECD BY: Poly Cuba ENTERED: 10/04/21 11:35 SP TYPE: ENDOM BX/C OTHR DR: Dr. Moshe Do MD Tissues: Endometrium, NOS Procedures: Surgery Specimen Level IV HEADER OPERATION: Hysteroscopy, dilation and curettage, polypectomy, Symphion PRE-OP DIAGNOSIS: Postmenopausal TISSUE SUBMITTED: Endometrial curettings/polyp MICROSCOPIC DIAGNOSIS Endometrial curettings/polyp: Fragments of polypoid endometrium with mild disorder. Focal dystrophic microcalcifications. Rare fragments of detached benign squamous mucosa. AM:amalia 10/07/2021 MICROSCOPIC DESCRIPTION Slides are reviewed. GROSS DESCRIPTION Received in fixative is one container labeled with the patient's name and designated endometrial curettings and polyp. The specimen consists of multiple irregular fragments of mucoid material that in aggregate measure 2 x 1 x <0.1 cm. The specimen is totally submitted in one cassette. / AM:amalia 10/04/2021 TC:5 CPT: 18375
--- NOTE | 2021-10-03 11:43 | PCM.DC ---
Discharge Instructions Diet Discharge Diet: No restrictions Activity Discharge Activity: May Drive (More than 24 hours after surgery) Return to work on:: 10/07/21 May resume sexual activity in: 1-2 weeks Weight Bearing Status: Weight bearing as tolerated Lifting Restrictions: No restrictions Additional Activity Instructions:: No tampons, intercourse, hot tubs, tub baths, pools for 1 week Dressing / Incision Call your doctor if you observe: Fever of 101 or Higher, Coldness, Increased Pain, Numbness or Tingling, Change in Color, Inability to urinate, Inability to have a bowel movement, Using more than 1 pad per hour, Shortness of breath, Dizziness, Fainting spells, Swelling in the ankles, Chest pain, Increased palpitations (irregular heartbeat), Calf discomfort and Uncontrolled pain Follow Up Care Please Follow Up With: Rei When: 1 week Test Results: Test results from this visit will be discussed in further detail at your follow-up appointment, if applicable. Discharge Plan Admission Attending Provider: Jenny Minaya Primary Care Provider: Moshe Do Discharge Orders/Prescriptions Prescriptions: Continued omeprazole 40 mg capsule,delayed release(DR/EC) 20 mg PO DAILY RF: 0 naproxen sodium [Aleve] 220 mg capsule 220 mg PO BID PRN (Reason: Pain) RF: 0 rizatriptan 10 MG tablet 10 mg PO DAILY PRN PRN (Reason: Headache) RF: 0 levothyroxine 112 mcg tablet 56 mcg PO DAILY RF: 0 multivitamin with minerals 1 EACH tablet 1 ea PO DAILY RF: 0 paroxetine HCl 10 mg tablet 10 mg PO DAILY RF: 0 Referrals / Follow Up: Moshe Do MD [Primary Care Provider] - Disposition Disposition (needs filled in before D/C Order can be placed): Home, Self Care
--- NOTE | 2021-10-03 12:18 | PCM.OPRPT ---
Problems Associated Problem List Diagnoses (1) PMB (postmenopausal bleeding): (2) Uterine polyp: (3) Thickened endometrium: Report of Operation Date of Procedure: 10/03/21 Pre-Operative Diagnosis: PMB, endometrial polyp and thickened endometrium on pelvic US Post-Operative Diagnosis: As above Surgery/Procedure Performed:: Hysteroscopy, polypectomy, D&C Description of Surgical Findings:: Good descent of uterus and cervix. Cervix was easily dilated. Atrophic appearing endometrium. Flat anterior polyp noted. Bilateral tubal ostia noted. Surgeon: Rei Type of Anesthesia: MAC Special Medications: None Specimen's removed: Endometrial polyp and endometrial curettings Drains: None Estimated Blood Loss (mL): < 50 cc Fluids Replaced: 50 cc fluid deficit Description of Procedure: Patient was taken to the operating room where MAC anesthesia was found to be adequate.. She was prepped and draped in dorsal lithotomy position using yellowfin stirrups. A weighted speculum was placed in the vagina to expose the cervix, and the anterior lip of the cervix was grasped with a single-tooth tenaculum. The cervix was already well dilated from the preoperative Cytotec. The cervix was serially dilated to 19 mm in order to accommodate the Symphion hysteroscope. The hysteroscope was advanced to the fundus of the uterus. The uterus was distended with normal saline as distention media. The endometrium was atrophic appearing and bilateral tubal ostia were noted. There was a small, flat polyp noted anteriorly. The polyp was resected using the Symphion device. The hysteroscope was then removed. A sharp curettage was performed for minimal amount of tissue. The polyp and endometrial cuttings were sent to pathology for review. All instruments were removed from the vagina. Hemostasis was noted. Vaginal sweep was performed. Instrument and sponge counts were correct. The patient was taken to the recovery in stable condition. Grafts/Implants Used: None Procedure Start Time: 12:02 Procedure Stop Time: 12:16 Complications None Admit VTE Documentation VTE Present on Admission: No VTE Mechan Device Prophylaxis: SCD's
== END 2021-10-03 23:59 | disposition home or self-care (01) ==
LOC: SDC 09:05 → AC 09:06
PROVIDERS: PCP Family Medicine; Referring Provider Obstetrics & Gynecology; Visit Provider Obstetrics & Gynecology
PROC: 0UB98ZZ Excision of Uterus, Via Natural or Artificial Opening Endoscopic (ICD-10-PCS; CPT 58558; principal; 2021-10-03 10:30)
DX: N95.0 Postmenopausal bleeding (principal); M06.9 Rheumatoid arthritis, unspecified; N84.0 Polyp of corpus uteri; R93.89 Abnormal findings on diagnostic imaging of other specified body structures; I10 Essential (primary) hypertension; K21.9 Gastro-esophageal reflux disease without esophagitis; E03.9 Hypothyroidism, unspecified; G47.30 Sleep apnea, unspecified; Z91.19 Patient's noncompliance with other medical treatment and regimen; Z79.899 Other long term (current) drug therapy
CPT/HCPCS: 58558; 00952; 85027; 86850; 86900; 86901; 88305; J7120; J2405

== ENCOUNTER 2022-11-10 10:30 | Outpatient (RCR) | payer BC, SELFPAY ==
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
--- NOTE | 2022-11-10 11:02 | HP.PTREVAL_ITS ---
Lucila Mckinney, JUS-C, It has been my pleasure to treat JERONIMO COTA over the last 8 visits for ACUTE RIGHT SIDED THORACIC BACK PAIN. Please see the progress note below for an update on the physical therapy plan of care! Subjective: PATIENT REPORTS TEMPORARY PAIN RELIEF IN THE POOL WHEN HANGING IN THE DEEP END. PATIENT REPORTS SOMETIMES THE EX'S HURT INCLUDING THE LIGHT PUSHING/PULLING AND EVEN STEP UPS. BROKE L MIDDLE FINGER AND THAT ALSO LIMITED USING L UE IN EXERCISE. PATIENT REPORTS SHE NOTICES R BACK PAIN WITH TURNING HER HEAD AT TIMES. CORRECTION TO EVAL - ONSET OF PAIN WAS SEP 2022 NOT 2021. Objective/Function: PATIENT WAS SEEN TODAY FOR RE-ASSESSMENT OF PROGRESS TOWARD THE SET PT GOALS AND THE NEED FOR FURTHER PHYSICAL THERAPY VS READINESS FOR DISCHARGE. UPON EXAM TODAY: NO SIGNIFICANT CHANGES OVER-ALL UPON EXAM TODAY COMPARED TO INITIAL EVAL EXCEPT ONEYDA LE DURAL TESTS ARE NEGATIVE (RIGHT WAS POSITIVE AT EVAL), LEFT HIP STRENGTH TESTING PROVOKES C/O INCREASED R LBP AND PALPATION OF L RIB CAGE AREA PROVOKES C/O INCREASED R RIB AREA PAIN. PATIENT IS NOT IMPROVING AND IS APPROPRIATE FOR PHYSICIAN RE-ASSESSMENT. PATIENT IS AGREEABLE. OSWESTRY SCORE IS UNCHANGED. Plan Plan: PHYSICIAN RE-ASSESSMENT. WE WOULD BE HAPPY TO CONTINUE PT APPROPRIATE. PATIENT AGREEABLE. Balance/Gait/Functional tests - Balance/Special Test Scores Oswestry Low Back Score: 14 Goals Goal 1:: DECREASE C/O RIGHT BACK PAIN Goal Time Frame: 4-6 Weeks Goal Progress: Not Progressing Goal 2:: IMPROVE PERSONAL CARE, LIFTING, STANDING, SLEEP, SOCIAL LIFE, TRAVEL AND HOMEMAKING FUNCTION. Goal Time Frame: 4-6 Weeks Goal Progress: Not Progressing Goal 3:: INSTRUCT IN PROPHYLAXIS Goal Time Frame: 4-6 Weeks Goal Progress: Not Progressing Anticipated Interventions Patient/Client Instruction: Educate patient on: Condition, Plan of Care, Risk Factors For the Purpose of:: To improve self management Therapeutic Exercise to Include: Strength training, Body mechanics, Postural training, Flexibilty training, Neuromotor development, In an aquatic setting, Dynamic Lumbar Stabilization, Scapular Strength/Stabilization For the Purpose of:: To decrease pain, To increase ROM, To improve muscle performance and motor function, To increase tolerance to activity/condition/po sition, To improve ability of physical actions for home/community/work/leisure Please do not hesitate to contact me at [phone] by phone or if you have questions or concerns regarding this new plan of care! Sincerely, Aida Fry PT, Cert MDT
--- NOTE | 2022-12-10 13:05 | HP.PTDCSUM ---
It has been my pleasure to treat JERONIMO COTA referred by BHARATI Farr, with the diagnosis of ACUTE RIGHT SIDED THORACIC BACK PAIN for a total of 8 visit(s). Discharge Date: Please see the following information for a summary of their discharge status. Subjective: PATIENT REPORTS TEMPORARY PAIN RELIEF IN THE POOL WHEN HANGING IN THE DEEP END. PATIENT REPORTS SOMETIMES THE EX'S HURT INCLUDING THE LIGHT PUSHING/PULLING AND EVEN STEP UPS. BROKE L MIDDLE FINGER AND THAT ALSO LIMITED USING L UE IN EXERCISE. PATIENT REPORTS SHE NOTICES R BACK PAIN WITH TURNING HER HEAD AT TIMES. CORRECTION TO EVAL - ONSET OF PAIN WAS SEP 2022 NOT 2021. Left thoracic Pain Intensity (Out of 10): 4 RIGHT THORACIC Pain Intensity (Out of 10): 4 % Improvement: 0 Objective/Function: PATIENT WAS SEEN TODAY FOR RE-ASSESSMENT OF PROGRESS TOWARD THE SET PT GOALS AND THE NEED FOR FURTHER PHYSICAL THERAPY VS READINESS FOR DISCHARGE. UPON EXAM TODAY: NO SIGNIFICANT CHANGES OVER-ALL UPON EXAM TODAY COMPARED TO INITIAL EVAL EXCEPT ONEYDA LE DURAL TESTS ARE NEGATIVE (RIGHT WAS POSITIVE AT EVAL), LEFT HIP STRENGTH TESTING PROVOKES C/O INCREASED R LBP AND PALPATION OF L RIB CAGE AREA PROVOKES C/O INCREASED R RIB AREA PAIN. PATIENT IS NOT IMPROVING AND IS APPROPRIATE FOR PHYSICIAN RE-ASSESSMENT. PATIENT IS AGREEABLE. OSWESTRY SCORE IS UNCHANGED. Goal 1:: DECREASE C/O RIGHT BACK PAIN Goal Progress: Not Progressing Goal 2:: IMPROVE PERSONAL CARE, LIFTING, STANDING, SLEEP, SOCIAL LIFE, TRAVEL AND HOMEMAKING FUNCTION. Goal Progress: Not Progressing Goal 3:: INSTRUCT IN PROPHYLAXIS Goal Progress: Not Progressing Plan: PHYSICIAN RE-ASSESSMENT. WE WOULD BE HAPPY TO CONTINUE PT APPROPRIATE. PATIENT AGREEABLE. If there are questions or concerns regarding this patient's physical therapy, please feel free to call me at [phone]. Thank you for the referral of this patient. Sincerely, Aida Fry, PT, Cert MDT Balance/Gait/Functional tests - Balance/Special Test Scores Oswestry Low Back Score: 14
== END 2022-11-10 19:00 | disposition home or self-care (01) ==
LOC: PT 10:30
PROVIDERS: PCP Family Medicine; Referring Provider Registered Nurse; Visit Provider Registered Nurse
DX: M54.6 Pain in thoracic spine (principal)
CPT/HCPCS: 97112; 97113; 97162; 97164